=== PATIENT | female | born 1980 | race Caucasian/White ===

== ENCOUNTER 2020-03-11 10:00 | Inpatient (IN) ==
[2020-03-11] MEDS ORDERED: Naloxone 0.4 MG/ML INJ IVP PRN (10:32)
[2020-03-11] MEDS ORDERED: Lidocaine 1% 20 ML MDV INFILT PRN (10:32)
[2020-03-11] MEDS ORDERED: Metoclopramide 10 MG/2 ML VIAL IVP PRN (10:32)
[2020-03-11] MEDS ORDERED: Famotidine 20 MG/2 ML VIAL IVP PRN (10:32)
[2020-03-11] MEDS ORDERED: Penicillin G Potassium 5,000,000 UNIT in 0.9 % Sodium Chloride Mini Bag 100 ML IVPB ONE (10:35)
[2020-03-11] MEDS ORDERED: Ringers Solution, Lactated 1,000 ML IVC SCH (10:45)
[2020-03-11] MEDS ORDERED: miSOPROStoL 25 MCG TABLET PO ONE ×2 (10:54→11:30)
[2020-03-11 11:20] LABS: Basophils # 0.1 K/mcL (0.0-0.2); Basophils % 0.3 %; Eosinophils % 0.2 %; Hematocrit 35.6 % (35.3-44.9); Hemoglobin 11.7 g/dL (11.5-15.4); Immature Granulocytes % 0.7 % (0-4); Lymphocytes # 1.7 K/mcL (0.6-4.6); Lymphocytes % 9.3 %; Mean Corpuscular HGB Conc 32.9 g/dL (31.6-35.5); Mean Corpuscular Hemoglobin 30.5 pg (28.0-33.3); Mean Platelet Volume 10.5 fL (9.4-12.4); Monocytes # 1.1 K/mcL (0.0-1.3); Monocytes % 6.2 %; Platelet Count 262 K/mcL (140-400); Red Blood Count 3.83 M/mcL (3.82-4.97); Red Cell Distribution Width 13.2 % (11.5-14.5); Segmented Neutrophils % 83.3 %
[2020-03-11 14:02] LABS: Amphetamine Screen,Urine Negative ng/mL (Cutoff=1000); Barbiturate Screen,Urine Negative ng/mL (Cutoff=200); Benzodiazepines Screen,Urine Positive ng/mL (Cutoff=200); Cannabinoid Screen,Urine Negative ng/mL (Cutoff = 50); Cocaine Screen,Urine Negative ng/mL (Cutoff= 300); Opiate Screen,Urine Negative ng/mL (Cutoff=300); Phencyclidine Screen,Urine Negative ng/mL (Cutoff=25)
[2020-03-11] MEDS ORDERED: Oxytocin 20 units/ LR 1000 mL 20 UNIT/1,000 ML BAG IVC ONE (15:28)
[2020-03-11] MEDS ORDERED: Oxytocin 20 units/ LR 1000 mL 20 UNIT/1,000 ML BAG IVC SCH (15:45)
[2020-03-11] MEDS: Penicillin G Potassium 2,500,000 UNIT in 0.9 % Sodium Chloride 100 ML IVPB SCH ×2 (15:51→19:54)
[2020-03-11] MEDS ORDERED: EPHEDrine 50 MG/ML VIAL IVP PRN (21:23)
[2020-03-11] MEDS ORDERED: Epidural Premix (fent/bupiv) 110 ML EP SCH (21:30)
[2020-03-12] MEDS: Penicillin G Potassium 2,500,000 UNIT in 0.9 % Sodium Chloride 100 ML IVPB SCH (00:12)
[2020-03-12] MEDS ORDERED: Ibuprofen 600 MG TABLET PO PRN (04:20)
[2020-03-12] MEDS ORDERED: diazePAM 5 MG TABLET PO PRN (07:53)
[2020-03-12] MEDS ORDERED: Measles/Mumps/Rubella Vacc 0.5 ML VIAL SQ PRN (08:14)
[2020-03-12] MEDS ORDERED: *HR* HYDROcodone/Acet 5/325 mg TABLET PO PRN (08:14)
[2020-03-12] MEDS ORDERED: Acetaminophen 325 MG TABLET PO PRN (08:14)
[2020-03-12] MEDS ORDERED: Rho Immune Globulin 1,500 UNIT SYRINGE IM PRN (08:14)
[2020-03-12] MEDS ORDERED: Sennosides 8.6 MG TABLET PO PRN (08:14)
[2020-03-12] MEDS ORDERED: Oxytocin 20 units/ LR 1000 mL 20 UNIT/1,000 ML BAG IVC SCH (08:15)
[2020-03-12] MEDS ORDERED: Fluconazole 100 MG TABLET PO ONE (09:36)
[2020-03-12] MEDS: Prenatal Vit/FA 1 EACH TABLET PO SCH (10:23)
[2020-03-12] MEDS ORDERED: Lanolin 7 G OINT...G. TP PRN (21:40)
[2020-03-13 05:56] LABS: Basophils # 0.1 K/mcL (0.0-0.2); Basophils % 0.6 %; Eosinophils # 0.1 K/mcL (0.0-0.6); Hematocrit 30.2 % (35.3-44.9); Hemoglobin 10.4 g/dL (11.5-15.4); Immature Granulocytes % 1.4 % (0-4); Lymphocytes % 17.1 %; Mean Corpuscular HGB Conc 34.4 g/dL (31.6-35.5); Mean Corpuscular Hemoglobin 31.7 pg (28.0-33.3); Mean Corpuscular Volume 92.1 fL (83.0-100.0); Mean Platelet Volume 10.1 fL (9.4-12.4); Monocytes % 8.5 %; Neutrophils # 8.5 K/mcL (1.6-8.9); Platelet Count 210 K/mcL (140-400); Red Blood Count 3.28 M/mcL (3.82-4.97); Red Cell Distribution Width 13.2 % (11.5-14.5); Segmented Neutrophils % 71.4 %; White Blood Count 11.9 K/mcL (4.3-11.1)
[2020-03-13] MEDS: Prenatal Vit/FA 1 EACH TABLET PO SCH (07:40)
[2020-03-13 07:47] VITALS: BP 118/79
== END 2020-03-13 09:33 | disposition home or self-care (01) | DRG 560 ==
LOC: 1NENULAB 10:05 → 1NENUOBS 03-12 07:36
PROVIDERS: ADMIT Obstetrics & Gynecology; ATTEND Obstetrics & Gynecology